=== PATIENT | female | born 1980 | race Caucasian/White ===

== ENCOUNTER 2023-12-18 14:41 | Emergency (ER) | payer OTHER, SELFPAY ==
[2023-12-18 14:48] VITALS: BP 148/88; PULSE 84; RESP 18; TEMP 36.6; O2SAT 99; BMI 20.9
--- NOTE | 2023-12-18 17:43 | DI.RAD.S_ITS ---
PROCEDURE: XR CHEST 1V INDICATIONS: chest pain TECHNIQUE: One view of the chest was acquired. COMPARISON: None. FINDINGS: Surgical changes and devices: None. Lungs and pleura: Lungs are clear. No pleural effusions or pneumothorax. Mediastinum: Mediastinal contours appear normal. Heart size is normal. Bones and chest wall: No suspicious bony lesions. Overlying soft tissues appear unremarkable. IMPRESSION: No acute cardiopulmonary abnormality is seen. Dictated by: Jimi Mcknight M.D. on 12/18/2023 at 18:01 Approved by: Jimi Mcknight M.D. on 12/18/2023 at 18:02
--- NOTE | 2023-12-18 17:43 | EKG_ITS ---
[facility] [address] [address] Test Date: 2023-12-18 Pat Name: Argentina Miller Department: [facility] Room: Gender: Female Director Of Sales And Marketing: MAYKEL : 1980 Requested By: Order Number: [id number] Reading MD: Cesar Schroeder Measurements Intervals [place] Rate: 81 P: 67 FL: 114 QRS: 79 QRSD: 90 T: 4 QT: 388 QTc: 450 Interpretive Statements Normal sinus rhythm Nonspecific ST abnormality Electronically Signed On 12-19-2023 8:51:02 PDT by Cesar Schroeder
[2023-12-18 18:02] VITALS: BP 158/86; PULSE 75; RESP 18; O2SAT 100
[2023-12-18 18:07] LABS: Add Manual Diff / Slide Review NO; Basophils Absolute Auto 0 /uL (0-100); Basophils Percent Auto 0.5 % (0-2); Eosinophils Absolute Auto 200 /uL (0-450); Eosinophils Percent Auto 3.5 % (2-4); Hematocrit 39.5 % (36-46); Hemoglobin 13.7 g/dL (12.0-16.0); Lymphocytes Absolute Auto 1200 /uL (1100-4500); Lymphocytes Percent Auto 18.9 % (25-40); Mean Corpuscular HGB Conc 34.6 % (30-36); Mean Corpuscular Hemoglobin 32.9 PG (26-34); Mean Corpuscular Volume 95.2 fL (80-100); Monocytes Absolute Auto 700 /uL (0-900); Monocytes Percent Auto 11.3 % (3-14); Neutrophils Absolute Auto 4100 /uL (1500-7000); Neutrophils Percent Auto 65.8 % (50-75); Platelet Count 305 X10^3/uL (150-400); Red Blood Cell Count 4.15 X10^6/uL (4.0-5.2); White Blood Cell Count 6.3 X10^3/uL (4.5-11.0)
[2023-12-18 18:12] LABS: HEMOLYSIS < 15 (0-50)
[2023-12-18 18:13] LABS: Prothrombin Time 10.9 SECONDS (9.4-12.5)
[2023-12-18 18:16] LABS: PTT Partial Thromboplastin Tim 33 SECONDS (25.1-36.5)
[2023-12-18 18:23] LABS: Alanine Aminotransferase 21 IU/L (<35); Albumin 4.2 g/dL (3.5-5.0); Albumin Globulin Ratio 1.2 (1.0-2.8); Alkaline Phosphatase 57 U/L (38-126); Aspartate Aminotransferase 27 IU/L (14-36); BUN Creatinine Ratio 21.5 (6-22); Bilirubin Total 0.5 mg/dL (0.2-1.3); Blood Urea Nitrogen 14 mg/dL (7-17); Calcium 9.1 mg/dL (8.4-10.2); Carbon Dioxide 26 mmol/L (22-32); Chloride 106 mmol/L (98-107); Creatine Kinase 64 U/L (30-135); Estimated Glomerular Filt Rate > 60 mL/min (>60); Globulin 3.4 g/dL (1.7-4.1); Glucose 99 mg/dL (70-100); Lipase 73 U/L (23-300); Magnesium 2.1 mg/dL (1.6-2.3); Potassium 3.9 mmol/L (3.4-5.1); Sodium 138 mmol/L (137-145); Total Protein 7.6 g/dL (6.3-8.2)
[2023-12-18 18:28] LABS: NT-proBNP (BNP-Adult 18+) 51 pg/mL (<125); Troponin I < 0.012 ng/mL (0.01-0.034)
[2023-12-18 18:37] VITALS: BP 127/71; PULSE 77; O2SAT 100
--- NOTE | 2023-12-18 19:03 | ED.CHESTPAIN ---
HPI - Chest Pain General Chief Complaint: Chest Pain Stated Complaint: poss blood clot/sent by [facility] Time Seen by Provider: 12/18/23 18:34 Source: patient Mode of arrival: Ambulatory Limitations: no limitations History of Present Illness HPI narrative: 43-year-old female presents by private vehicle from home for evaluation of possible PE. Patient has been living [facility] for the summer, originally from [place]. For the last week patient states she has had intermittent pains in the left side of her chest that worsened with deep breathing. Earlier today patient went to [facility] for this complaint. She was discharged, but they called her back this afternoon stating that she had an elevated D-dimer and she should go to the ER for evaluation of possible pulmonary embolism. Patient denies history of blood clots, denies use of OCPs, no significant family history of coagulopathy. Recently drove to [place] from [facility], no other prolonged travel. Related Data Allergies Allergy/AdvReac Type Severity Reaction Status Date / Time Sulfa (Sulfonamide Allergy Verified 12/18/23 14:48 Antibiotics) Patient History alcohol intake frequency: a few times a week Substance Use Type: does not use Exam Initial Vital Signs Initial Vital Signs: Vital Signs Temperature 97.9 F 12/18/23 14:48 Pulse Rate 84 12/18/23 14:48 Respiratory Rate 18 12/18/23 14:48 Blood Pressure 148/88 H 12/18/23 14:48 Pulse Oximetry 99 12/18/23 14:48 Oxygen Delivery Method Room Air 12/18/23 14:48 Const: Awake, alert, no acute distress, nontoxic appearing Cardiac: regular rate, regular rhythm RESP: unlabored, speaking in complete sentences without dyspnea Skin: Warm, Dry, intact, no rashes Neuro: AO x3, CN II-XII grossly intact, moves all extremities Course Orders Ordered: Discontinued Medications Aspirin (Aspirin 81 Mg Chew Tab) 324 mg PO NOW ONE Stop: 12/18/23 17:44 Last Admin: 12/18/23 19:14 Dose: 324 mg Documented By: NATHANIEL Vital Signs Vital signs: Vital Signs - 8 hr 12/18/23 14:48 12/18/23 18:02 12/18/23 18:37 Temperature 97.9 F Pulse Rate 84 75 77 Respiratory Rate 18 18 Blood Pressure 148/88 H 158/86 H 127/71 Pulse Oximetry 99 100 100 Oxygen Delivery Method Room Air Room Air Room Air 12/18/23 21:05 Temperature Pulse Rate 68 Respiratory Rate 18 Blood Pressure 147/90 H Pulse Oximetry 98 Oxygen Delivery Method Room Air MDM - Chest Pain Differential Diagnosis Differential diagnosis: Likely pneumothorax, atypical chest pain and costochondritis Lab Data 12/18/23 17:58 12/18/23 17:58 Labs: Lab Results 12/18/23 Range/Units 17:58 WBC 6.3 (4.5-11.0) X10^3/uL RBC 4.15 (4.0-5.2) X10^6/uL Hgb 13.7 (12.0-16.0) g/dL Hct 39.5 (36-46) % MCV 95.2 (80-100) fL MCH 32.9 (26-34) PG MCHC 34.6 (30-36) % RDW 13.0 (11.6-14.8) % Plt Count 305 (150-400) X10^3/uL Neut % (Auto) 65.8 (50-75) % Lymph % (Auto) 18.9 L (25-40) % [place] % (Auto) 11.3 (3-14) % Eos % (Auto) 3.5 (2-4) % Baso % (Auto) 0.5 (0-2) % Neut # (Auto) 4100 (2322-9751) /uL Lymph # (Auto) 1200 (0477-5341) /uL [place] # (Auto) 700 (0-900) /uL Eos # (Auto) 200 (0-450) /uL Baso # (Auto) 0 (0-100) /uL PT 10.9 (9.4-12.5) SECONDS INR 1.0 (0.9-1.3) APTT 33 (25.1-36.5) SECONDS Sodium 138 (137-145) mmol/L Potassium 3.9 (3.4-5.1) mmol/L Chloride 106 (98-107) mmol/L Carbon Dioxide 26 (22-32) mmol/L BUN 14 (7-17) mg/dL Creatinine 0.65 (0.52-1.04) mg/dL Estimated GFR > 60 (>60) mL/min BUN/Creatinine Ratio 21.5 (6-22) Glucose 99 (70-100) mg/dL Calcium 9.1 (8.4-10.2) mg/dL Magnesium 2.1 (1.6-2.3) mg/dL Total Bilirubin 0.5 (0.2-1.3) mg/dL AST 27 (14-36) IU/L ALT 21 (<35) IU/L Alkaline Phosphatase 57 (38-126) U/L Total Creatine Kinase 64 (30-135) U/L Troponin I < 0.012 (0.01-0.034) ng/mL NT-Pro-B Natriuret Pep 51 (<125) pg/mL Total Protein 7.6 (6.3-8.2) g/dL Albumin 4.2 (3.5-5.0) g/dL Globulin 3.4 (1.7-4.1) g/dL Albumin/Globulin Ratio 1.2 (1.0-2.8) Lipase 73 (23-300) U/L Imaging Data CT scan - chest: Radiologist's Impression: PROCEDURE: CT ANGIO CHEST PE PROTOCOL INDICATIONS: PLEURITIC PAIN, ELEVATED D-DIMER TECHNIQUE: After the administration of intravenous contrast, 2 mm thick sections acquired from the pulmonary apices to the posterior costophrenic angles. 3-dimensional maximum intensity projection (MIP) coronal and sagittal reformats were then acquired through the thorax. For radiation dose reduction, the following was used: automated exposure control, adjustment of mA and/or kV according to patient size. COMPARISON: None. FINDINGS: Image quality: Diagnostic. Pulmonary arteries: Pulmonary arteries are normal in size, and demonstrate no intraluminal filling defects to suggest central pulmonary embolism. Lower Neck: No enlarged lymph nodes. Thyroid: No thyroid nodules which require sonographic follow up, per consensus guidelines. Axillae: No enlarged lymph nodes. Chest Wall: Unremarkable. Bones: Unremarkable. Lungs and Pleura: Trace left pleural effusion. No right pleural effusion. No pneumothorax. No consolidation or suspicious nodules. Heart: Heart size is normal. No pericardial effusion. Thoracic Vessels: No aortic aneurysm. Mediastinum and Shruthi: No enlarged lymph nodes. Esophagus: No wall thickening. No hiatal hernia. Upper Abdomen: Visualized upper abdomen solid organs and bowel loops appear normal. IMPRESSION: 1. No acute pulmonary embolus. 2. Trace left pleural effusion. Otherwise, no acute cardiopulmonary process. Approved by: Stuart Hines M.D. on 12/18/2023 at 20:48 ECG Data Interpretation: Normal sinus rhythm at 81 beats per minute. Normal MD, no ST T wave changes, no STEMI MDM Narrative Medical decision making narrative: Patient is sent in for pleuritic chest pain and elevated D-dimer at urgent care. Patient is saturating well on room air, no acute distress, hemodynamically stable. Laboratory work shows no acute abnormality, D-dimer not repeated and CT angio ordered. CT angio negative for PE. A trace left-sided pleural effusion of uncertain significance seen. This is very small. Patient informed of lab and imaging findings. Informed of the trace pleural effusion. Patient counseled to follow up with PCP to ensure that the pleural effusion resolves. ED return precautions discussed. Discharge Plan Departure Patient Disposition: Home Clinical Impression: Chest pain Instructions: DI for Atypical Chest Pain Activity Restrictions/Additional Instructions: Your laboratory work today and CT imaging were normal. There is no evidence of blood clot on your CT scan today. There was a very, very small amount of fluid at the bottom of your lung base on the left-hand side. I do not know the cause of this, but I recommend that when you get back home you follow up with a primary care doctor for further testing. As it was right now it is not dangerous and will hopefully go away on its own. Stand Alone Forms: Patient Portal/API
[2023-12-18] MEDS: ASPIRIN 81 MG CHEW TAB 324 MG PO (19:14)
--- NOTE | 2023-12-18 19:35 | DI.CT.S_ITS ---
PROCEDURE: CT ANGIO CHEST PE PROTOCOL INDICATIONS: PLEURITIC PAIN, ELEVATED D-DIMER TECHNIQUE: After the administration of intravenous contrast, 2 mm thick sections acquired from the pulmonary apices to the posterior costophrenic angles. 3-dimensional maximum intensity projection (MIP) coronal and sagittal reformats were then acquired through the thorax. For radiation dose reduction, the following was used: automated exposure control, adjustment of mA and/or kV according to patient size. COMPARISON: None. FINDINGS: Image quality: Diagnostic. Pulmonary arteries: Pulmonary arteries are normal in size, and demonstrate no intraluminal filling defects to suggest central pulmonary embolism. Lower Neck: No enlarged lymph nodes. Thyroid: No thyroid nodules which require sonographic follow up, per consensus guidelines. Axillae: No enlarged lymph nodes. Chest Wall: Unremarkable. Bones: Unremarkable. Lungs and Pleura: Trace left pleural effusion. No right pleural effusion. No pneumothorax. No consolidation or suspicious nodules. Heart: Heart size is normal. No pericardial effusion. Thoracic Vessels: No aortic aneurysm. Mediastinum and Shruthi: No enlarged lymph nodes. Esophagus: No wall thickening. No hiatal hernia. Upper Abdomen: Visualized upper abdomen solid organs and bowel loops appear normal. IMPRESSION: 1. No acute pulmonary embolus. 2. Trace left pleural effusion. Otherwise, no acute cardiopulmonary process. Approved by: Stuart Hines M.D. on 12/18/2023 at 20:48
[2023-12-18 21:05] VITALS: BP 147/90; PULSE 68; RESP 18; O2SAT 98
[2023-12-18 21:36] VITALS: BP 139/86; PULSE 67; RESP 18; O2SAT 98
== END 2023-12-18 21:34 | disposition home or self-care (01) ==
PROVIDERS: Emergency Medicine; Emergency Provider Emergency Medicine
DX: R07.9 Chest pain, unspecified (principal); R79.89 Other specified abnormal findings of blood chemistry
CPT/HCPCS: 36415; 71045; 71275; 80053; 82550; 83690; 83735; 83880; 84484; 85025; 85610; 85730; 93005; 99284; Q9967